=== PATIENT | male | born 1965 | race Caucasian/White ===

== ENCOUNTER 2018-11-06 17:22 | Emergency (ER) | payer OTHER ==
[2018-11-06 17:28] VITALS: BP 142/98
[2018-11-06] MEDS ORDERED: DEXAMETHASONE SOD PHOS INJ 10 MG/1 ML VIAL IM ONE (18:18)
[2018-11-06] MEDS ORDERED: KETOROLAC TROMETHAMINE INJ/PF 30 MG/1 ML SDV IM ONE (18:18)
--- NOTE | 2018-11-06 18:24 | ER Document Report ---
HPI - HPI Time Seen by Provider: 11/06/18 18:04 Pain Level: 4 Notes: Patient is a 53-year-old male with no significant past medical history presents emergency department complaining of muscle soreness to the left upper extremity status post fall 3 days ago. Patient states that he fell from about 4 feet off of a boat ladder and landed primarily on his right side, but is only having symptoms on his left side. Patient states that he is primarily here just for a steroid shot and muscle relaxer. 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 He is able to perform activities of daily living and other activities without any difficulty. Denies drug allergies. No loss of conscious. He is eating and drinking without difficulty. He is urinating normally and having normal bowel movements. Denies any headache, fever, head injury, neck pain, changes in vision/speech/mentation/hearing, URI, sore throat, chest pain, palpitations, syncope, cough, shortness of breath, wheeze, dyspnea, abdominal pain, nausea/vomiting/diarrhea, urinary retention, dysuria, hematuria, loss of control of bowel or bladder, numbness/tingling, saddle anesthesia, muscle paralysis/weakness, or rash. - ROS Systems Reviewed and Negative: Yes All other systems reviewed and negative Past Medical History - Social History Smoking Status: Never Smoker Family History: Reviewed & Not Pertinent Vertical Provider Document - CONSTITUTIONAL Agree With Documented VS: Yes Notes: PHYSICAL EXAMINATION: GENERAL: Well-appearing, well-nourished and in no acute distress. NECK: Normal range of motion, supple without lymphadenopathy. Non-tender. Spurling negative. No rigidity/meningismus. LUNGS: Breath sounds clear to auscultation bilaterally and equal. No wheezes rales or rhonchi. HEART: Regular rate and rhythm without murmurs, rubs, gallops. Musculoskeletal: Lt shoulder: FROM to passive/active. Strength 5+/5 due to pain. Neg impingement test. Neg speed test. No crepitus. No erythema or warmth. No deformity or ecchymosis. RC intact 5+/5 strength. + mild tenderness to the left trap mm, mild spasm/trigger point. Extremities: No cyanosis, clubbing, or edema b/l. Peripheral pulses 2+. Capillary refill less than 3 seconds. NEUROLOGICAL: Normal speech, normal gait. Normal sensory, motor exams PSYCH: Normal mood, normal affect. SKIN: Warm, Dry, normal turgor, no rashes or lesions noted. - INFECTION CONTROL TRAVEL OUTSIDE OF THE [place] IN LAST 30 DAYS: No Course - Re-evaluation Re-evalutation: 11/06/18 18:21 Patient is an afebrile, well-hydrated, 53-year-old male who presents to the ED with left shoulder/back pain which I suspect to be inflammatory. Vitals are acceptable without any significant tachycardia, tachypnea, or hypoxia. PE is otherwise unremarkable for any neurovascular compromise, obvious tendon/ligament rupture, obvious fracture/dislocation, septic joint. Pt in agreement with not performed XR's at this time. NEXUS/[place] head CT negative. Patient declined any Tylenol or ice. Patient is nontoxic-appearing. Toradol, decadron (pt request for steroid injection) given IM. No other labs or imaging warranted at this time based on H&P. Conservative measures otherwise for symptoms. Recheck with your PCM in 3-5 days. Consider consult orthopedics. Return to the ED with any worsening/concerning symptoms otherwise as reviewed in discharge. Patient is in agreement. - Vital Signs Vital signs: Temp Pulse Resp BP Pulse Ox 98.5 F 87 18 142/98 H 100 11/06/18 17:27 11/06/18 17:27 11/06/18 17:27 11/06/18 17:27 11/06/18 17:27 Discharge - Discharge Clinical Impression: Strain of left trapezius muscle Qualifiers: Encounter type: initial encounter Qualified Code(s): S46.812A - Strain of other muscles, fascia and tendons at shoulder and upper arm level, left arm, initial encounter Left shoulder pain Qualifiers: Chronicity: acute Qualified Code(s): M25.512 - Pain in left shoulder Condition: Stable Disposition: HOME, SELF-CARE Instructions: Exercise Program for the Shoulder ([facility]) Additional Instructions: Rest, Ice Tylenol/ibuprofen as needed Light stretches daily Strength exercises as able Moist heat and massage may help F/u with your PCP in 3-5 days for a recheck Consider consult(s) with Orthopedics/physical therapy for ongoing/worsening symptoms Return to the ED with any worsening symptoms and/or development of fever, headache, chest pain, palpitations, syncope, shortness of breath, trouble breathing, abdominal pain, n/v/d, muscle weakness/paralysis, numbness/tingling, swelling, redness, or other worsening symptoms that are concerning to you. Prescriptions: Cyclobenzaprine HCl [Flexeril 10 mg Tablet] 10 mg PO TIDP PRN #15 tab PRN Reason: Forms: Elevated Blood Pressure, Return to Work Referrals: [facility] ([facility]) [Provider Group] - Follow up as needed
== END 2018-11-06 18:55 | disposition home or self-care (01) ==
LOC: ER 17:22
DX: S29.012A Strain of muscle and tendon of back wall of thorax, initial encounter (principal); M25.512 Pain in left shoulder; W11.XXXA Fall on and from ladder, initial encounter
CPT/HCPCS: 99283; 96372; J1885; J1100

== ENCOUNTER 2018-11-08 14:55 | Emergency (ER) | payer OTHER ==
[2018-11-08 15:05] VITALS: BP 130/100
[2018-11-08] MEDS ORDERED: BUPIVACAINE HCL 0.75% INJ/PF (7.5 MG/1 ML) 10 ML SDV INJ ONE (15:18)
[2018-11-08] MEDS ORDERED: METHYLPREDNISOLONE ACETATE INJ 80 MG/1 ML VIAL IM ONE (15:18)
--- NOTE | 2018-11-08 15:32 | ER Document Report ---
ED Extremity Problem, Upper - General Chief Complaint: Arm Pain Stated Complaint: LEFT ARM PAIN Time Seen by Provider: 11/08/18 15:15 Mode of Arrival: Ambulatory Information source: Patient Notes: Chief complaint: Right upper back pain History of complain:( obtained from----patient) 53 years old male presents today with pain over the right upper trapezius muscle region after being injured while trying to break a fall. He was seen in the ER and evaluated. He has an appointment with orthopedic surgeon. Meantime he is pain is increasing intensity therefore present to the ED. He has full range of motion of the left shoulder. But feeling tingling sensation over the left posterior arm. Onset: As above Duration: Last few days Severity: Moderate to severe Quality: Sharp Context: Trying to break a fall Exacerbating factor and relieving factors: Movement of the neck or shoulder blade REVIEW OF SYSTEMS: CONSTITUTIONAL : Denies fever, chills, or sweats. Denies recent illness. EENT: Denies eye, ear, throat, or mouth pain or symptoms. Denies nasal or sinus congestion or discharge. Denies throat, tongue, or mouth swelling or difficulty swallowing. CARDIOVASCULAR: Denies chest pain. Denies palpitations or racing or irregular heart beat. Denies ankle edema. RESPIRATORY: Denies cough, cold, or chest congestion. Denies shortness of breath, difficulty breathing, or wheezing. GASTROINTESTINAL: Denies distention. Denies nausea, vomiting, or diarrhea. Denies blood in vomitus, stools, or per rectum. Denies black, tarry stools. Denies constipation. GENITOURINARY: Denies difficulty urinating, painful urination, burning, frequency, blood in urine, or discharge. FEMALE GENITOURINARY: Denies vaginal bleeding, heavy or abnormal periods, irregular periods. Denies vaginal discharge or odor. MUSCULOSKELETAL: Denies back or neck pain or stiffness. Denies joint pain or swelling. SKIN: Denies rash, lesions or sores. HEMATOLOGIC : Denies easy bruising or bleeding. LYMPHATIC: Denies swollen, enlarged glands. NEUROLOGICAL: Denies confusion or altered mental status. Denies passing out or loss of consciousness. Denies dizziness or lightheadedness. Denies headache. Denies weakness or paralysis or loss of use of either side. Denies problems with gait or speech. Denies sensory loss, numbness, or tingling. Denies seizures. PSYCHIATRIC: Denies anxiety or stress. Denies depression, suicidal ideation, or homicidal ideation. ALL OTHER SYSTEMS REVIEWED AND NEGATIVE. PHYSICAL EXAMINATION: GENERAL: Well-appearing, well-nourished and in no acute distress. HEAD: Atraumatic, normocephalic. EYES: Pupils equal round and reactive to light, extraocular movements intact, conjunctiva are normal. ENT: Nares patent, oropharynx clear without exudates. Moist mucous membranes. NECK: Normal range of motion, supple without lymphadenopathy LUNGS: Breath sounds clear to auscultation bilaterally and equal. No wheezes rales or rhonchi. HEART: Regular rate and rhythm without murmurs ABDOMEN: Soft, nontender, nondistended abdomen. No guarding, no rebound. No masses appreciated. Examination of genitals-deferred Musculoskeletal: Left trapezius muscle at the middle where it attaches along the thoracic spine T2-3, sharp tenderness were noted. Range of motion of the left shoulder for abduction abduction flexion extension were within normal limit. N Dictation was performed using [employer] voice recognition software TRAVEL OUTSIDE OF THE [place] IN LAST 30 DAYS: No - HPI Notes: Dictated - Related Data Allergies/Adverse Reactions: No Known Allergies Allergy (Verified 11/08/18 14:56) Past Medical History - Social History Smoking Status: Current Some Day Smoker Chew tobacco use (# tins/day): No Frequency of alcohol use: Rare Drug Abuse: None Lives with: Family Family History: Reviewed & Not Pertinent Patient has suicidal ideation: No Patient has homicidal ideation: No Renal/ Medical History: Denies: Hx Peritoneal Dialysis Review of Systems - Review of Systems Notes: Dictated Physical Exam - Vital signs Vitals: Temp Pulse Resp BP Pulse Ox 98.9 F 109 H 20 130/100 H 100 11/08/18 15:04 11/08/18 15:04 11/08/18 15:04 11/08/18 15:04 11/08/18 15:04 - Notes Notes: Dictated Course - Vital Signs Vital signs: Temp Pulse Resp BP Pulse Ox 98.9 F 109 H 20 130/100 H 100 11/08/18 15:04 11/08/18 15:04 11/08/18 15:04 11/08/18 15:04 11/08/18 15:04 Procedures - Additional Procedures Trigger point injection Time performed: 15:30 Notes: 11/08/18 15:29 Under aseptic condition using sterile technique after cleaning with alcohol 60 mg of Depo-Medrol mixed with Sensorcaine, infiltrated along the T2 left paraspinal muscle without any complications. Postprocedure pain was relieved Discharge - Discharge Clinical Impression: Myalgia and myositis Trapezius strain Qualifiers: Encounter type: sequela Laterality: left Qualified Code(s): S46.812S - Strain of other muscles, fascia and tendons at shoulder and upper arm level, left arm, sequela Condition: Fair Disposition: HOME, SELF-CARE Instructions: Muscle Strain ([facility]) Prescriptions: Diazepam [Valium 2 mg Tablet] 2 mg PO BID #10 tablet Hydrocodone Bit/Acetaminophen [Hydrocodon-Acetaminophen 5-325] 1 each PO TID #14 tablet Prednisone 10 mg PO ASDIR PRN 6 Days #1 tab.ds.pk PRN Reason: Forms: Return to Work
== END 2018-11-08 15:44 | disposition home or self-care (01) ==
LOC: ER 14:55
DX: S29.012A Strain of muscle and tendon of back wall of thorax, initial encounter (principal); W19.XXXA Unspecified fall, initial encounter; M60.9 Myositis, unspecified; F17.200 Nicotine dependence, unspecified, uncomplicated
CPT/HCPCS: 99283; 20552; J3490; J1040